=== PATIENT | male | born 1945 | race Caucasian/White ===

== ENCOUNTER 2022-08-10 06:15 | Day surgery (SDC) | payer OTHER ==
--- NOTE | 2022-07-19 13:54 | RAD REPORT ---
EXAM DESCRIPTION: RAD - Chest Pa And Lat (2 Views) - 07/19/2022 1:47 pm CLINICAL HISTORY: Pre op pending spaceoar gel Chest pain. COMPARISON: No comparisons FINDINGS: The lungs are clear. The heart is normal in size. No displaced fractures. IMPRESSION: No acute or concerning finding suspected.
[2022-07-19 14:56] LABS: Absolute Lymphocytes (CBC) 1.9 K/uL (0.7-4.9); Lymphocytes % 30.4 % (15.3-44.8); MCV 87.5 fL (80-100); MPV 8.3 fL (7.6-11.3); RBC Red Blood Cell Count 4.91 M/uL (4.33-5.43)
--- NOTE | 2022-07-20 13:50 | EKG ---
Test Date: 2022-07-19 Test Time: 13:28:18 [employer] Maker: JINNY MEASUREMENT RESULTS: Intervals: Rate: 61 CO: 208 QRSD: 88 QT: 410 QTc: 412 [place]: P: 78 CO: 208 QRS: -18 T: 59 INTERPRETIVE STATEMENTS: Normal sinus rhythm Normal ECG No previous ECG available for comparison Electronically Signed On 07-20-22 13:47:43 [employer] BUIL[employer] by Kt Wiseman
[2022-08-10] MEDS ORDERED: Ringers Lactate 1,000 ML IV ONE (06:39)
[2022-08-10] MEDS ORDERED: CEFAZOLIN SODIUM 2 GM/VIAL ONE (06:39)
[2022-08-10] MEDS ORDERED: propofoL 200 MG/20 ML VIAL IV ONE ×2 (07:12→07:18)
[2022-08-10] MEDS ORDERED: LIDOCAINE 1% MPF 5 ML VIAL ONE (07:13)
[2022-08-10] MEDS ORDERED: FENTANYL CITR 100 MCG/2 ML ONE ×2 (07:13→07:36)
[2022-08-10] MEDS ORDERED: NS 0.9% VIAL 10 ML ONE (07:36)
[2022-08-10] MEDS ORDERED: KETOROLAC 30 MG/ML INJ ONE (07:52)
[2022-08-10] MEDS ORDERED: ONDANSETRON 4 MG/2 ML VIAL ONE (07:57)
[2022-08-10] MEDS ORDERED: EPHEDRINE SULF 50 MG/ML VIAL ONE (08:02)
[2022-08-10 09:16] VITALS: BP 122/61; TEMP 97.3; O2SAT 98
--- NOTE | 2022-08-11 09:51 | OP ---
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 Principal Procedures: 1.Transrectal ultrasound-guided placement of fiducial markers. 2.Transrectal ultrasound-guided insertion of SpaceOAR gel. Indication For Procedure: Mr. Maldonado is a 76-year-old gentleman who was previously on active surveill ance for a low-risk prostate cancer until it progressed to favorable intermediate risk disease at [facility], he elected to proceed with radiation therapy. He was referred for placement of SpaceOAR ge l and fiducial markers and presents today for that management. Procedure In Detail: The patient was consented in the preoperative holding area before being transfe rred to the operative suite where general anesthesia was induced. He was given Ancef 2 g IV antimicr obial prophylaxis and pneumo boots were provided for DVT prophylaxis. He was placed in the high lith otomy position, padded and secured to the table appropriately. His genitalia were elevated out of e perineal region using an Ioban drape, and his perineal region was prepped with Betadine. The trans rectal ultrasound probe was then placed free hand into his rectum with ease, and the prostate was vis ualized in both the sagittal and coronal images. Once appropriately in place, we then placed fiducia l markers into the prostate at the left apical mid gland anteriorly, and a second fiducial marker was placed via the perineal region into the right mid gland base region anteriorly. Then, using a Ventealaproprietein ge with the SpaceOAR needle directional with the bevel turned up, the needle was inserted via his per ineal body in the midline and was navigated using ultrasound guidance into the space of [place]' s without any entry into the rectum noted. The needle was navigated into the mid gland region and in the mid zone of the prostate between the apex and the base. Aspiration was performed to confirm abs ence of blood and injection of saline was then given to assess hydrodissection and that the fluid wou ld disperse evenly in the midline. Once we were able to position the needle such that we got good mi dline bilateral disbursement of the saline, I then the syringe with saline and connected th e SpaceOAR gel mixture apparatus and injected the SpaceOAR gel and appropriately instilled the materi al and watched it fill the space between the apex and the base of the prostate across the midline and elevating the prostate bilaterally. Excellent bilateral distribution of the gel was present apicall y and in the mid gland with more right lateral distribution of the gel towards the base of the prosta te. The distribution of the gel was otherwise very excellent in position, and so the needle was shanna shante under ultrasound guidance, and the patient was then taken out of the lithotomy position. He was awakened from general anesthesia before being transferred to a stretcher and then transferred to the recovery room in good condition. Complications: None. Discharge Disposition: He should notify the Radiation oncologist of his intent to begin simulation f or radiation therapy. Otherwise, subsequent followup should be established intervally once radiation therapy is complete or if urologic issues exist in the interim. LUMA/RENNY Voice ID: [id number] Report ID: [id number]
== END 2022-08-10 09:50 | disposition home or self-care (01) ==
LOC: OR 06:15
PROVIDERS: ATTEND Urology
PROC: 0VH43YZ Insertion of Other Device into Prostate and Seminal Vesicles, Percutaneous Approach (ICD-10-PCS; principal; 2022-08-10 07:30)
DX: C61 Malignant neoplasm of prostate (principal); I10 Essential (primary) hypertension
CPT/HCPCS: 93005; 85025; 80048; 36415; 71046; 55874; J2704 ×2; J2001; J3010 ×2; A4216; J7120; J2405